=== PATIENT | female | born 1985 | race Caucasian/White ===

== ENCOUNTER 2021-06-11 23:51 | Inpatient (IN) | payer BC ==
[~2021-06-11] VITALS: Ht 152.4 cm; Wt 79.5 kg
[2021-06-12] VITALS (16 sets, daily range): BP systolic 102–137; BP diastolic 53–87; PULSE 79–126; TEMP 97.8–99.1
[2021-06-12 01:48] LABS: BASO % 0.3 % (0.0-2.0); EOS # 0.1 K/mm3 (0.0-0.7); GRAN # 6.5 K/mm3 (1.4-6.5); GRAN % 68.1 % (42.2-75.2); HEMOGLOBIN 12.3 g/dl (12.5-16.0); LYMPH % 20.7 % (20.0-51.0); MEAN CELL VOLUME 92 fl (80.0-100.0); MEAN CORPUSCULAR HEMOGLOBIN 32 pg (27.0-31.0); MEAN CORPUSCULAR HGB CONC 35 g/dl (33.0-37.0); MEAN PLATELET VOLUME 9.6 fl (7.4-10.4); MONO # 0.8 K/mm3 (0.1-0.6); MONO % 8.6 % (1.7-9.3); PLATELET COUNT 215 K/mm3 (130-400); REDCELL DISTRIBUTION WIDTH-CV 13.2 % (11.5-14.5)
[2021-06-12 01:49] LABS: HEMATOCRIT 35.7 % (37.0-47.0)
--- NOTE | 2021-06-12 03:09 | NUR ---
35 YO AT 40.2 WEEKS GESTATION TO LDR4 WITH C/0 LEAKING FLUID SINCE ABOUT 2300 TONIGHT, AND CTXS THIS AFTERNOON THAT HAVE GOTTEN STRONGER AND CLOSER TOGETHER. PT REPORTS THAT SHE SAW DR COLLIER THIS AFTERNOON AND WAS AND HE STRIPPED HER MEMBRANES.
--- NOTE | 2021-06-12 03:23 | NUR ---
0100 IV STARTED, 18G TO LEFT FOREARM, LR BOLUS STARTED FOR EPIDURAL
--- NOTE | 2021-06-12 04:50 | NUR ---
0134 - Graciela BENITEZ PARK MAINTAINER AT BEDSIDE FOR EPIDURAL 0135 - PROCEDURE TIME OUT 0136 - UP ON SIDE OF BED FOR EPIDURAL 0140 - TEST DOSE 0148 - RIGHT TILT AFTER EPIDURAL
--- NOTE | 2021-06-12 05:01 | NUR ---
0230 - DR BUTCHER TO BEDSIDE, INTRODUCES HIMSELF TO PT AND . DR BUTCHER REMAINS IN UNIT AWAITING DELIVERY
--- NOTE | 2021-06-12 05:12 | NUR ---
0330 - STRAIGHT CATH WITH 500CC CL YELLOW URINE OUT, PT FEELING MORE PRESSURE WITH CTXS
--- NOTE | 2021-06-12 05:16 | NUR ---
0335 - PUSHING INITIATED, PT INSTRUCTED ON PUSHING TECHNIQUES. RN REMAINS AT BEDSIDE COACHING PT WITH PUSHING AND ASSESSING STATUS
--- NOTE | 2021-06-12 05:19 | NUR ---
RN REMAINS AT BEDSIDE COACHING PT ON PUSHING AND ASSESSING STATUS. 0358 - DR BUTCHER TO BEDSIDE, PT PREPPED FOR DELIVERY 0359 - DELIVERY OF VIABLE MALE INFANT, TO MOTHERS ABD, CORD CLAMPED BY DR BUTCHER AND CUT BY FOB
--- NOTE | 2021-06-12 05:23 | NUR ---
0404 - SPONTANEOUS DELIVERY OF PLACENTA 0405 - DR BUTCHER REMOVING EXTRA VAGINAL TISSUE FROM PREVIOUS DELIVERY
--- NOTE | 2021-06-12 07:30 | NUR ---
PATIENT VOIDS IN BEDPAN WITHOUT DIFFICULTIES.
--- NOTE | 2021-06-12 07:45 | NUR ---
PATIENT REMAINS WITH NUMB LEFT LEG AND UNABLE TO RAISE OFF BED. ASSISTED TO WHEEL CHAIR AND MOVED TO ROOM 208. ORIENTED TO ROOM AND ALL BELONGINGS TRANSFERRED WITH PATIENT. PT EDUCATED NOT TO GET OUT OF BED WITHOUT RN IN ROOM.
--- NOTE | 2021-06-12 10:10 | NUR ---
Initial visit attempt; Nurse with patient, Audio Visual Aids Director left card of congratulations and God's blessings along with information regarding the availability of Spiritual Care at our hospital.
[2021-06-13 00:30] VITALS: BP 114/70; PULSE 77; TEMP 98.2
[2021-06-13 07:45] VITALS: BP 115/58; PULSE 88; TEMP 97.7
[2021-06-13] MEDS ORDERED: IBU800 M1 PO (08:48)
--- NOTE | 2021-06-13 12:48 | NUR ---
DISCHARGE TEACHING COMPLETED. EDUCATED ON FOLLOW UP APPOINTMENT AND PRESCRIPTIONS. QUESTIONS INVITED AND ANSWERED.
== END 2021-06-13 13:25 | disposition home or self-care (01) | DRG 768 ==
LOC: LDRO 23:51 → OB 06-12 00:33 → LDR 06-12 00:33 → OB 06-12 07:03
PROVIDERS: Obstetrics & Gynecology; ADMIT Obstetrics & Gynecology
PROC: 10E0XZZ Delivery of Products of Conception, External Approach (ICD-10-PCS; principal; 2021-06-12)
PROC: 0UBGXZZ Excision of Vagina, External Approach (ICD-10-PCS; 2021-06-12)
DX: O99.344 Other mental disorders complicating childbirth (principal); Z37.0 Single live birth; F32.A Depression, unspecified; O99.72 Diseases of the skin and subcutaneous tissue complicating childbirth; L91.8 Other hypertrophic disorders of the skin; O90.89 Other complications of the puerperium, not elsewhere classified; M54.9 Dorsalgia, unspecified; Z3A.40 40 weeks gestation of pregnancy
CPT/HCPCS: J2400; J2590; J2795; J7120